=== PATIENT | female | born 1990 | race African-American/Black ===

== ENCOUNTER 2023-05-27 19:19 | Emergency (ER) | payer MEDICAID ==
[~2023-05-27] VITALS: Ht 175.3 cm; Wt 81.0 kg
[2023-05-27 19:30] VITALS: O2SAT 100
[2023-05-27] MEDS ORDERED: METHOCARBAMOL 500MG TABLET PO ONE (22:00)
[2023-05-27] MEDS ORDERED: KETOROLAC 30MG/ML VIAL IM ONE (22:00)
[2023-05-27] MEDS ORDERED: METH-653 MT (22:21)
[2023-05-27 23:18] VITALS: BP 125/35; PULSE 75; RESP 16; TEMP 98.5
== END 2023-05-27 23:20 | disposition home or self-care (01) ==
LOC: ER 19:19
DX: M54.50 Low back pain, unspecified (principal); M79.10 Myalgia, unspecified site; V49.59XA Passenger injured in collision with other motor vehicles in traffic accident, initial encounter; Y93.89 Activity, other specified; Y92.89 Other specified places as the place of occurrence of the external cause; Y99.8 Other external cause status
CPT/HCPCS: 99283; 81025; 96372; J1885